=== PATIENT | female | born 1990 | race Caucasian/White ===

== ENCOUNTER 2020-06-03 00:25 | Emergency (ER) | payer SELFPAY ==
[~2020-06-03] VITALS: Ht 157.5 cm; Wt 74.8 kg
[2020-06-03 00:33] VITALS: BP 125/89
--- NOTE | 2020-06-03 00:37 | NUR ---
PT IN TENT TO A/W MEDICAL EVALUATION
--- NOTE | 2020-06-03 00:46 | NUR ---
PT EVALUATED AND DISCHARGED BY DR. ISABEL. ALL RELEVANT DISCHARGE INSTRUCTIONS GIVEN BY DR. ISABEL.
== END 2020-06-03 00:46 | disposition home or self-care (01) ==
LOC: MED 00:25
DX: R06.02 Shortness of breath (principal); F41.1 Generalized anxiety disorder
CPT/HCPCS: 99281